=== PATIENT | male | born 1955 | race Two or more races ===

== ENCOUNTER 2021-08-07 08:00 | Day surgery (SDC) | payer OTHER | END 2021-08-07 14:45 | disposition home or self-care (01) | LOC: AMB-ENDOS 08:00 → EDBD 15:00 → EDSTATUS 15:00 | PROVIDERS: ATTEND Colon & Rectal Surgery | DX: D12.5 Benign neoplasm of sigmoid colon (principal); Z20.828 Contact with and (suspected) exposure to other viral communicable diseases ==